=== PATIENT | female | born 1975 | race Hispanic/Latino ===

== ENCOUNTER 2018-09-06 08:03 | Outpatient (CLI) | payer BC | END 2018-09-06 08:04 | disposition home or self-care (01) | LOC: BICMAMMO 08:03 | PROVIDERS: ATTEND Student in an Organized Health Care Education/Training Program | DX: Z12.31 Encounter for screening mammogram for malignant neoplasm of breast (principal) | CPT/HCPCS: 77063; 77067 ==

== ENCOUNTER 2018-09-20 14:27 | Outpatient (CLI) | payer BC ==
--- NOTE | 2018-09-20 15:44 | RAD ---
PA AND LATERAL CHEST: History: Shortness of breath. FINDINGS: The cardiomediastinum is normal. The lungs are clear. No bony thorax is intact. IMPRESSION: No radiographic evidence of acute cardiopulmonary process. POS: OFF
== END 2018-09-20 14:28 | disposition home or self-care (01) ==
LOC: BICRAD 14:27
PROVIDERS: ATTEND Family Medicine
DX: J45.909 Unspecified asthma, uncomplicated (principal)
CPT/HCPCS: 71046

== ENCOUNTER 2020-06-18 13:40 | Outpatient (CLI) | payer BC ==
--- NOTE | 2020-06-18 15:03 | MRI ---
MRI Cervical spine without contrast: HISTORY: Radiculopathy, cervical region. Patient states neck pain for 2 months. COMPARISON: None FINDINGS: The craniocervical junction is unremarkable. No significant cord signal abnormality. Paravertebral soft tissues have a normal appearance and normal signal intensity. There is a small focus of increased T2-weighted signal intensity seen in the subcutaneous soft tissue s posterior neck at the level of the C4 vertebral body. Exact etiology for this finding is uncertain. This could potentially represent a small sebaceous cyst C1-2:No significant stenosis. C2-3: There is no disc bulge or disc herniation. The central spinal canal and neural foramina are pat ent. C3-4: There is no disc bulge or disc herniation. The central spinal canal and neural foramina are pat ent. C4-5: Minimal disc osteophyte complex and central disc protrusion. There is slight effacement of the central ventral aspect subarachnoid space. Neural foramina are patent. C5-6: Minimal disc osteophyte complex. Central spinal canal and neural foramina are patent. C6-7: Focal central disc protrusion which narrows the ventral subarachnoid space which does encroach on the anterior aspect of the spinal cord. Neural foramina are patent. C7-T1: There is no disc bulge or disc herniation. The central spinal canal and neural foramina are pa tent. IMPRESSION: Mild disc degenerative changes at the C4-5, C5-6, and C6-7 levels. No high-grade central canal or dm ral foraminal narrowing is seen at any level of the cervical spine.
== END 2020-06-18 13:41 | disposition home or self-care (01) ==
LOC: SCSMRI 13:40
PROVIDERS: ATTEND Specialist
DX: M47.26 Other spondylosis with radiculopathy, lumbar region (principal); M47.816 Spondylosis without myelopathy or radiculopathy, lumbar region
CPT/HCPCS: 72141

== ENCOUNTER 2020-10-24 07:11 | Outpatient (CLI) | payer BC, OTHER ==
--- NOTE | 2020-10-24 08:17 | ULT ---
Sonogram abdomen complete HISTORY: Upper abdomen pain. FINDINGS: The gallbladder has a normal appearance. Common duct is 0.4 cm. Liver unremarkable without focal mass or intrahepatic biliary dilatation. No free fluid. The spleen, kidneys, and visualized portions of the abdominal aorta, IVC, and pancreas are within nor mal limits. IMPRESSION : No abnormalities are demonstrated.
--- NOTE | 2020-10-24 09:06 | ULT ---
PELVIC ULTRASOUND: Transabdominal ultrasound of pelvis performed. INDICATION: Abdominal pain and pelvic pain. FINDINGS: Uterus has a normal sonographic appearance. Uterine measurements were recorded at 7.9 x 4.1. x 5.2 c m. Endometrial stripe is normal measured at 6 mm. Echogenicity within the endometrial cavity is con sistent with IUD. Both ovaries are identified. There are normal-appearing follicles. Color Doppler and spectral julisa sis demonstrates blood flow to both ovaries. There are follicular cysts seen on both ovaries. The l argest follicular cyst on each ovary measures approximately 1.5 to 2.0 cm. IMPRESSION: Unremarkable pelvic ultrasound. Follicular cyst seen in both ovaries measuring up to 2.0 cm. Intrau terine device is seen within the endometrial cavity. POS: OFF
== END 2020-10-24 07:12 | disposition home or self-care (01) ==
LOC: BICULT 07:11
PROVIDERS: ATTEND Family Medicine
DX: R10.84 Generalized abdominal pain (principal); N83.02 Follicular cyst of left ovary; N83.01 Follicular cyst of right ovary; Z97.5 Presence of (intrauterine) contraceptive device
CPT/HCPCS: 76856; 93975; 93976